=== PATIENT | female | born 1960 | race Caucasian/White ===

== ENCOUNTER → 2020-07-23 10:42 | Outpatient (BNVA) | payer OTHER, SELFPAY | PROVIDERS: Visit Provider Surgery | DX: Z76.89 Persons encountering health services in other specified circumstances (principal) ==

== ENCOUNTER → 2020-07-27 10:04 | Outpatient (BNVA) | payer OTHER, SELFPAY | PROVIDERS: Visit Provider Surgery | DX: Z76.89 Persons encountering health services in other specified circumstances (principal) ==

== ENCOUNTER 2023-08-06 10:49 | Outpatient (AMB) | payer MEDICARE, SELFPAY ==
--- NOTE | 2023-08-06 12:22 | AM.OFFWIN_ITS ---
Intake Vital Signs 08/06/23 12:26 Height 5 ft 2 in Weight 210 lb BMI 38.4 BP 142/90 H Blood Pressure Location Rt brachial Position Sitting Pulse 81 Pulse Source Pulse Oximeter Temp 97.9 F Temp Source Temporal Artery Scan Pulse Oximetry (%) 98 Intake Visit Reasons: EP Bilateral leg pain (lobby) Intake Note: pt is here for c/o bilateral leg pain Patient Tobacco Use Status: Never used Tobacco Allergies No Known Allergies [No Known Allergies*] Allergy (Verified 08/06/23 13:02) Medication List - Last Reconciled 08/06/23 by Wellington Jenkins MD cholecalciferol (vitamin D3) 50 mcg PO DAILY dicyclomine 10 mg PO TID hydroxychloroquine (Plaquenil) 200 mg PO BID inulin-chromium picolinate 2-100 gram-mcg (Fiber Select Gummies) tabs PO naltrexone mg PO naproxen sodium (Aleve) 220 mg PO BID PRN Do you need a note to return to daycare/school/sports/work: Yes HPI EP Bilateral leg pain (lobby) HPI Details 63-year-old female presents to the [facility] for a sick visit. Patient is complaining of pain in both her right and left knees. Symptoms started approximately a month ago. Symptoms are worse when she wakes up in the morning. The stiffness lasts for more than an hour. Patient has rheumatoid arthritis for which she is taking Plaquenil. Since symptoms started has been using a cane to ambulate. [facility] Medical History (Updated 08/06/23 @ 13:04 by Wellington Jenkins MD) Symptomatic cholelithiasis Surgical History (Updated 07/27/20 @ 11:24 by David Echevarria MD) History of laparoscopic cholecystectomy (~07/15/20) History of carpal tunnel release History of tonsillectomy (~2009) Social History (Updated 07/23/20 @ 11:10 by JOVITA Jimenez) Alcohol intake: current Alcohol intake frequency: holidays/special occasions only Patient Tobacco Use Status: Never used Tobacco Physical Exam Vital Signs: Last Vital Signs Temp 97.9 F 08/06/23 12:26 Pulse 81 08/06/23 12:26 BP 142/90 H 08/06/23 12:26 Pulse Ox 98 08/06/23 12:26 BMI result Body Mass Index 38.4 Extrem Other: Right and left knee: Discomfort in the popliteal Force a. Passive flexion of either knee elicits crepitus. Full extension. Assessment & Plan Assessment & Plan (1) Osteoarthritis, knee: Code(s): M17.9 - Osteoarthritis of knee, unspecified Qualifiers: Osteoarthritis type: primary Laterality: bilateral Qualified Code(s): M17.0 - Bilateral primary osteoarthritis of knee Plan: X-ray images personally reviewed by me. Marked osteoarthritis in both knees. Orders: Orders XR knee RT 3V Today S83.91XA - Sprain of unspecified site of right knee, initial encounter XR knee LT 3V Today M17.9 - Osteoarthritis of knee, unspecified Medications: New meloxicam 15 mg PO DAILY 14 tabs 0RF Coding Level of Care Code Est Pt Level 4 (77394) Diagnoses Primary osteoarthritis of both knees M17.0 Osteoarthritis type: primary Laterality: bilateral
[2023-08-06 12:26] VITALS: BP 142/90; PULSE 81; TEMP 36.6; O2SAT 98; BMI 38.4
== END 2023-08-06 13:47 | disposition home or self-care (01) ==
PROVIDERS: PCP Family Medicine; Visit Provider Internal Medicine
DX: M17.0 Bilateral primary osteoarthritis of knee (principal)
CPT/HCPCS: 99214

== ENCOUNTER 2023-08-06 13:00 | Outpatient (REF) | payer MEDICARE, SELFPAY ==
--- NOTE | ~2023-08-06 | XR_ITS ---
EXAMINATION: XR KNEE, LEFT CLINICAL INFORMATION: Left knee osteoarthritis COMPARISON: None available. TECHNIQUE: Three views of the left knee. FINDINGS: There is no evidence of fracture or dislocation of the left knee joint. There are changes of osteoarthritis with narrowing of the medial compartment of left knee joint, subchondral cysts formation and joint medial tibial plateau and spurring. The lateral tibial plateau and lateral femoral condyle. There is patellar spurring with mild suprapatellar fullness due to small joint effusion. XR/XR knee LT 3V IMPRESSION: Changes of osteoarthritis of the left knee joint
--- NOTE | ~2023-08-06 | XR_ITS ---
EXAMINATION: XR KNEE, RIGHT CLINICAL INFORMATION: Pain. Sprain. COMPARISON: None available. TECHNIQUE: 3 views of the right knee. FINDINGS: The bony structures are osteopenic. There is mild medial and lateral as well as patellofemoral degenerative change with mild loss of joint space, mild osteophyte formation and patella subchondral lucencies. There is no fracture. There is a small joint effusion. There are medial apparent soft tissue varices. XR/XR knee RT 3V IMPRESSION: Mild tricompartmental knee degenerative change. Small joint effusion. No acute osseous abnormality. Medial soft tissue varices.
== END 2023-08-06 13:01 | disposition home or self-care (01) ==
LOC: HO.HMGCX 13:00
PROVIDERS: PCP Family Medicine; Visit Provider Internal Medicine
DX: S83.91XA Sprain of unspecified site of right knee, initial encounter (principal); M17.12 Unilateral primary osteoarthritis, left knee
CPT/HCPCS: 73562